=== PATIENT | female | born 1985 | race Caucasian/White ===

== ENCOUNTER 2021-05-02 12:27 | Emergency (ER) | payer BC, OTHER ==
[~2021-05-02] VITALS: Ht 167.6 cm; Wt 99.8 kg
[~2021-05-02 12:27] MED LIST: CIPRO500 MG PO; PERCOCET 5-3251 EACH PO; PYRIDIUM200 MG PO
[2021-05-02] MEDS ORDERED: HYDROMORPHONE HC2 MG PO (15:49)
[2021-05-02] MEDS ORDERED: LIDODERM1 EACH TOP (15:49)
== END 2021-05-02 16:04 | disposition home or self-care (01) ==
LOC: ED 12:27
DX: M54.41 Lumbago with sciatica, right side (principal); Z91.040 Latex allergy status
CPT/HCPCS: 96372; 99283; A9270; J1885

== ENCOUNTER 2021-12-23 14:17 | Emergency (ER) | payer BC, OTHER ==
[~2021-12-23] VITALS: Ht 167.6 cm; Wt 111.1 kg
[~2021-12-23 14:17] MED LIST changes: +HYDROMORPHONE HC2 MG PO; +LIDODERM1 EACH TOP
[2021-12-23] MEDS ORDERED: CEFADROXIL1 GM PO (15:45)
[2021-12-23] MEDS ORDERED: CELECOXIB200 MG PO (15:45)
== END 2021-12-23 15:57 | disposition home or self-care (01) ==
LOC: ED 14:17
DX: L05.01 Pilonidal cyst with abscess (principal); Z91.040 Latex allergy status; Z79.899 Other long term (current) drug therapy
CPT/HCPCS: 10060; 99282-25

== ENCOUNTER 2022-05-10 06:55 | Day surgery (SDC) | payer BC, OTHER ==
[~2022-05-10] VITALS: Ht 167.6 cm; Wt 111.4 kg
[~2022-05-10 06:55] MED LIST changes: +CEFADROXIL1 GM PO; +CELECOXIB200 MG PO
--- NOTE | 2022-05-10 07:30 | NUR ---
RN TO ROOM TO CHECK PT IN WITH DS RN. PT SITTING IN HIGH FOWLERS AND PULSE OXMIMETER PLACED ON PT, HR NOTED TO FLUXUATE. PT DENIES NAUSEA, BACK PAIN, CHEST PAIN. PT REPORTS HIGH AXITEY TODAY, "WORRIED ABOUT PAIN AFTER SUGERY." PT DENIES CARDIAC HX. RADIAL PULSE REGULER AND WNL. PT PRIMARY RN AWARE.
--- NOTE | 2022-05-10 09:00 | NUR ---
05/10/22 0900 Guillermina Petty 0859 - PT TAKEN THROUGH PACU DIRECTLY TO ER FOR INVESTIGATION OF HEART RYTHEM.
== END 2022-05-10 09:02 | disposition still patient (30) ==
LOC: DS 06:55
PROVIDERS: ATTEND Colon & Rectal Surgery
PROC: 0JB90ZZ Excision of Buttock Subcutaneous Tissue and Fascia, Open Approach (ICD-10-PCS; principal; 2022-05-10)
DX: L05.91 Pilonidal cyst without abscess (principal); E66.9 Obesity, unspecified; Z98.51 Tubal ligation status; Z87.891 Personal history of nicotine dependence; Z91.040 Latex allergy status; Z68.39 Body mass index [BMI] 39.0-39.9, adult
CPT/HCPCS: 00300; J0690; J1644; J2001; J2250; J2405; J2704; J3010; J7121

== ENCOUNTER 2022-05-10 09:05 | Inpatient (IN) | payer BC, OTHER ==
[~2022-05-10] VITALS: Ht 167.6 cm; Wt 109.8 kg
--- NOTE | 2022-05-11 07:31 | EKG ---
[facility] [address] [facility] [place] [address] Signed Atrial fibrillation Septal infarct , age undetermined Abnormal ECG No previous ECGs available POSTERIOR ECG Confirmed by EVERTON REED MD ([id number]) on 05/11/2022 7:31:32 AM Electronically Signed By: EVERTON REED MD 05/11/22 0731 PATIENT NAME: JOCE ROMERO Electrocardiogram DATE OF : 81 PHYSICIAN: EVERTON REED MD REPORT #: [id number] REPORT IS CONFIDENTIAL AND NOT TO BE RELEASED WITHOUT AUTHORIZATION
--- NOTE | 2022-05-11 07:32 | EKG ---
[facility] [address] [facility] [place] [address] Signed Atrial fibrillation Abnormal QRS-T angle, consider primary T wave abnormality Abnormal ECG No previous ECGs available Confirmed by EVERTON REED MD ([id number]) on 05/11/2022 7:32:32 AM Electronically Signed By: EVERTON REED MD 05/11/22 0732 PATIENT NAME: JOCE ROMERO Electrocardiogram DATE OF : 81 PHYSICIAN: EVERTON REED MD REPORT #: [id number] REPORT IS CONFIDENTIAL AND NOT TO BE RELEASED WITHOUT AUTHORIZATION
[2022-05-13] MEDS ORDERED: ALEVE220 MG PO (08:52)
[2022-05-13] MEDS ORDERED: ELIQUIS5 MG PO (10:07)
[2022-05-13] MEDS ORDERED: AMIODARONE HCL200 MG PO (10:08)
[2022-05-13] MEDS ORDERED: MAG-OXIDE400 MG PO (10:09)
== END 2022-05-13 17:07 | disposition home or self-care (01) | DRG 309 ==
LOC: ED 09:05 → CCU 09:06
PROVIDERS: ADMIT Family Medicine; ATTEND Internal Medicine
DX: I48.0 Paroxysmal atrial fibrillation (principal); L05.01 Pilonidal cyst with abscess; R11.0 Nausea; Z87.442 Personal history of urinary calculi; Z98.890 Other specified postprocedural states; Z98.51 Tubal ligation status; Z91.040 Latex allergy status; Z79.899 Other long term (current) drug therapy
CPT/HCPCS: 36415; 80048; 80053; 81001; 83735; 84443; 84484; 85025; 85379; 87502; 93005; 93010; 93306; 96374; 99285-25; A9270; J0282; J1650; J2405; J3475; J3480; J7030; J7060; U0003

== ENCOUNTER 2023-06-26 11:09 | Inpatient (IN) | payer BC, OTHER ==
[~2023-06-26] VITALS: Ht 167.6 cm; Wt 93.7 kg
[~2023-06-26 11:09] MED LIST changes: +ALEVE220 MG PO; +AMIODARONE HCL200 MG PO; +AMOXICILLIN500 M1 PO; +ELIQUIS5 MG PO; +MAG-OXIDE400 MG PO
[2023-06-26] MEDS ORDERED: CELEBREX50 MG PO (11:16)
[2023-06-26 11:35] LABS: BASOPHILS 0.6 % (0-2); EOSINOPHILS 1.1 % (0-6); HEMATOCRIT 45.6 % (35.0-50.0); HEMOGLOBIN 15.2 g/dL (12.0-18.0); LYMPHOCYTES 20.5 % (24-44); MCH 29.9 (27-36); MCHC 33.3 g/dl (30-36); MCV 89.8 fl (81-99); MONOCYTES 5.5 % (0-12); NEUTROPHILS 72.3 % (39-80); PLATELET COUNT 243 K/uL (140-440); RBC 5.08 M/ul (4.3-5.7); RDW 12.9 (10.5-15.0)
[2023-06-26 11:43] LABS: ALBUMIN 3.9 g/dL (3.4-5.0); ALBUMIN/GLOBULIN RATIO 0.93 (1.1-2.4); BILIRUBIN, TOTAL 0.3 ng/dL (0.2-1.0); BUN/CREATININE RATIO 10.34 (6.0-28.6); CALCIUM 9.1 mg/dL (8.5-10.1); CREATININE, SERUM 0.87 mg/dL (0.55-1.02); MAGNESIUM 1.9 mg/dL (1.8-2.4); PROTEIN, TOTAL 8.1 g/dL (6.4-8.2)
[2023-06-26 13:22] LABS: INFLUENZA B NAA NEGATIVE (NEGATIVE); RESPIRATORY SYNCYTIAL VIR NAA NEGATIVE (NEGATIVE)
[2023-06-26 17:56] VITALS: BP 112/85
--- NOTE | 2023-06-26 18:15 | NUR ---
PATIENT ARRIVED FROM ED VIA STRETCHER WITH REGINA HOLBROOK. PATIENT ABLE TO STAND AND TRANSFER TO BED ON HER OWN AND TOLERATED WELL. PATIENTS HR 140'S ON ARRIVAL. PATIENT HAS NO COMPLAINTS. PATIENT DENIES CHEST PAIN OR PALPITATIONS. BELONGINGS AT PATIENTS BEDSIDE.
[2023-06-26 20:00] VITALS: BP 123/101
--- NOTE | 2023-06-26 20:19 | NUR ---
RECEIVED REPORT FROM GAMA HOLBROOK. ALL QUESTIONS AND CONCERNS WERE ADDRESSED PATIENT JOCE DENIES ANY NEEDS OR DISCOMFORT AT THIS TIME. SHE IS LOOKING FORWARD TO RECEIVING VISITORS MOI
[2023-06-26 21:00] VITALS: BP 115/88
--- NOTE | 2023-06-26 21:00 | NUR ---
JOCE STATES COMFORTABLE AND ENDORSES NEED TO USE THE RESTROOM. ASSISTANCE WAS GIVEN TO MONITOR WIRES AND HR. SHE IS EATING WITH VISITORS AT BEDSIDE. SCHEDULED 2099 [address]
--- NOTE | 2023-06-26 21:06 | NUR ---
2105- ROUNDED WITH MD GRANADO REGARDING UNCONTROLLED RVR OF 120-180S WITH ACTIVITY. DISCUSSED ADDING A PRN MEDICATION FOR HR CONTROL BUT ULTIMATELY DECIDED AGAINST THIS DUE TO A 5 SECOND PAUSE EARLIER IN THE DAY.
--- NOTE | 2023-06-26 23:30 | NUR ---
2315: NOTIFIED MD GRANADO REGARDING HR UP TO 165 WHILE SLEEPING. THIS RN REQUESTED PRN ANTIARRYTHMICS AND DISCUSSED THIS WITH MD. HOWEVER, WE WILL CONTINUE CURRENT PLAN OF CARE OF AMIODARONE GTT
[2023-06-27] VITALS (23 sets, daily range): BP systolic 92–128; BP diastolic 61–100
--- NOTE | 2023-06-27 | NUR ---
0000- PATIENT JOCE IS RESTING WITH COMFORTABLY WITH EYES CLOSED. SHE DENIES ANY NEEDS AT THIS TIME AND STATES THAT THERE IS NO DISCOMFORT. THIS RN PROVIDED A WARM BLANKET AND ICE WATER. PERSONAL BELONGINGS, BEDSIDE TABLE, AND CALL LIGHT WITHIN REACH.
--- NOTE | 2023-06-27 02:08 | NUR ---
PATIENT JOCE IS RESTING WITH EYES CLOSED. SHE DENIES ANY NEEDS OR DISCOMFORTS AT THIS TIME. AMIO GTT STILL ACTIVE. HR CONTINUES TO BE NOTED 100-160. VSS. BEDSIDE TABLE, PERSONAL BELONGINGS, AND CALL LIGHT WITHIN REACH.
--- NOTE | 2023-06-27 02:38 | NUR ---
NOTIFIED MD GRANADO OF PERSISTENT RVR OF 120-170 WITH VTACH. 3-5 BEAT RUN OF VTACH NOTED EVERY MINUTE TO 2 MINUTES. MD GRANADO WILL REVIEW GET BACK TO ME WITH NEW ORDERS SHORTLY.
--- NOTE | 2023-06-27 03:32 | NUR ---
AMIODARONE BOLUS ADMINISTERED OVER 10 MINUTES. PATIENT NICK TOLERATED WELL WITH NO COMPLAINTS. PERSISTENT AFIB NOTED WITH RVR 160S. MULTIPLE PVCS AND VTACH NOTED. BP AFTER BOLUS 100/67 (78). WILL CONTINUE TO MONITOR CLOSELY AND FOLLOWUP WITH MD NEEDED. PATIENT DENIES ANY DISCOMFORTS. RESTROOM PRIVILEDGES GRANTED WITH RN AT BEDSIDE.
--- NOTE | 2023-06-27 04:57 | NUR ---
PATIENT NICK IS RESTING WITH EYES CLOSED. EASILY AROUSABLE. STATES COMFORT AND DENIES ANY NEEDS. BEDSIDE TABLE AND CALL LIGHT WITHIN REACH. AFIB RVR WITH VTACH NOTED
[2023-06-27 05:27] LABS: BASOPHILS 0.7 % (0-2); EOSINOPHILS 1.9 % (0-6); HEMOGLOBIN 13.1 g/dL (12.0-18.0); LYMPHOCYTES 26.2 % (24-44); MCH 30.3 (27-36); MCHC 33.5 g/dl (30-36); MCV 90.3 fl (81-99); MONOCYTES 5.5 % (0-12); NEUTROPHILS 65.7 % (39-80); PLATELET COUNT 192 K/uL (140-440); RBC 4.32 M/ul (4.3-5.7); RDW 13.4 (10.5-15.0)
[2023-06-27 05:37] LABS: ANION GAP 13.3 (7-21); BUN/CREATININE RATIO 17.24 (6.0-28.6); CALCIUM 8.5 mg/dL (8.5-10.1); CREATININE, SERUM 0.87 mg/dL (0.55-1.02); POTASSIUM 4.3 mmol/L (3.5-5.1)
--- NOTE | 2023-06-27 05:42 | NUR ---
0530- UPDATED MD GRANADO REGARDING MINIMAL CHANGE IN HR AND VTACH. THIS RN RECEIVED VERBAL ORDERS TO INCREASE AMIODARONE GTT DOSE TO 33.3ML/HR FOR THE REMAINDER OF 2ND BAG AND 3RD BAG OF AMIODARONE IF NO CHANGE IS NOTED.
--- NOTE | 2023-06-27 06:18 | NUR ---
0600- PATIENT NICK HAD A RESTFUL EVENING WITH MINIMAL COMPLAINTS, DISCOMFORTS, AND NO PAIN THROUGHOUT THE NIGHT. SHE WAS NOTED TO BE IN AFIB WITH RVR WITH VTACH. MD GRANADO NOTIFIED OF CARE THROUGHOUT THE NIGHT. NEURO- ALERT AND ORIENTED X4. NO PAIN. INDEPENDENT MOBILITY AND AMBULATION. CARDIAC- AFIB WITH RVR. AMIODARONE GTT INCREASED TO 33.3MLS. AMIO BOLUS ADMINISTERED. AFEBRILE, NO EDEMA NOTED. BP WDL RESP- WDL. BREATH SOUNDS CLEAR. ABLE TO COUGH AND DEEP BREATH GI/- WDL LDA BILATERAL AC PLAN- CONTINUE AMIO GTT. NURSING COMMUNICATION TO CONTINUE AMIO GTT RATE AT 33.3ML/HR
--- NOTE | 2023-06-27 06:26 | EKG ---
[facility] [address] [facility] [place], [place] [address] Signed afib w/ RVR brief episode of vtach. Abnormal QRS-T angle, consider primary T wave abnormality Abnormal ECG similar to 05/10/22 Confirmed by KARI GRANADO MD ([id number]) on 06/27/2023 6:25:55 AM Electronically Signed By: KARI GRANADO 06/27/23 0626 PATIENT NAME: JOCE ROMERO Electrocardiogram DATE OF : 81 PHYSICIAN: KARI GRANADO REPORT #: [id number] REPORT IS CONFIDENTIAL AND NOT TO BE RELEASED WITHOUT AUTHORIZATION
--- NOTE | 2023-06-27 07:34 | NUR ---
97.9 temp, new iv amiodorone started checked with mounika in pharmacy - awakened pt for meds, denies needs. call light in reach.
--- NOTE | 2023-06-27 08:04 | NUR ---
in room with dr lopez and pt. pt resting in bed, hr 142 with 93/75 bp. discussing plan of care and future oral meds.
--- NOTE | 2023-06-27 09:06 | NUR ---
tele alarming - dr lopez on unit discussed/reviewed with this rn - confirmed po lopressor was given to pt this am as ordered. hr current 135-140s dr carcamo.
--- NOTE | 2023-06-27 09:51 | NUR ---
In to complete assessment. Patient sleeping at this time. Allowed to rest at this time. Will return to speak with patient at later time.
--- NOTE | 2023-06-27 10:12 | NUR ---
IV PUMP ALARMING, "DISTAL OCCULSION." IV ASSESSED, WNL. NO S/S OF PHLEBITIS NOTED. INFUSION RESTARTED. PT UP TO RESTROOM WITH STAND BY ASSIST FOR LINE AND TUBE MANAGEMENT. PT VOIDS WITHOUT ISSUE. SAMANTHA CARE PER PT. STAND BY ASSIST BACK TO BED. HEART RATE UP TO 150'S WITH ACTIVIY, REMAINS IN AFIB RYTHEM. PTS PRIMARY RN UPDATED. PT SISTER ARRIVED TO VISIT. NO ADDITIONAL REQUESTS OR COMPLAINTS. CALL LIGHT WITHIN REACH. BED RAILS UP.
--- NOTE | 2023-06-27 10:36 | NUR ---
Patients sister is in room with her. Patient has gotten up and voided 1x. Breakfast still on table. Patient reports no pain and remains in bed with call light in reach.
--- NOTE | 2023-06-27 10:56 | NUR ---
DR BERNAL IN UNIT - RN REVIEWED THE TELE AND HR WITH REVIEWED EMAR AND MEDS GIVEN TODAY NO CHANGES.
--- NOTE | 2023-06-27 10:59 | NUR ---
PT SADDENED BY NEED TO MISS FAMILY EVENT THIS WEEKEND. REINFORCED IMPORTANCE OF SELF CARE AND HEALTH. PT CONSENTED TO PRAYER. PRAYED FOR PATIENCE AND TIMELINESS OF HEALING.
--- NOTE | 2023-06-27 12:21 | NUR ---
dr lopez in unit with this intern [facility] med list with this rn no cardiac meds, aware rn request records from [place], review tele at this time, hr 137, bp 117/100. no pt distress.
--- NOTE | 2023-06-27 12:47 | NUR ---
rn call to medical records at [facility] - verbal expidite of records from cardiology being sent now. pt resting in room, family at side, denies sob, complaints, call light in reach. hr 133.
--- NOTE | 2023-06-27 12:50 | NUR ---
call to dr lopez pt converted to sr rate in the 50's then rn hung up phone and rate resumed irregular and sinus tachy.
--- NOTE | 2023-06-27 13:06 | NUR ---
THIS RN ANSWERED CALL LIGHT. PT STATES SHE NEEDS TO "GO NUMBER 2", PT STANDBY ASSIST TO BATHROOM. PT STATES SHE HAD A BM, SHE FLUSHED THE TOILET SO THIS RN DID NOT SEE BM CHARACTERISTICS. PT TRANSFERS BACK TO BED WITH STANDBY ASSIST. PT'S RN NOTIFIED. PT STATES NO FURTHER NEEDS AT THIS TIME, CALL LIGHT WITHIN REACH, BED RAILS UP, FRIENDS AT BEDSIDE.
--- NOTE | 2023-06-27 13:30 | NUR ---
dr lopez here - reviewed tele from 1250 conversion and re entry to [facility] afib. aware records from [place] are transmitting now. pt denies needs.
--- NOTE | 2023-06-27 13:52 | NUR ---
Patient sitting up with friends/family in room. States she lives in a house with her aunt and 2 sons. Has stairs. No issues navigating stairs. Patient still works full time staff interpreter and drives. Has no issues getting to appointment. no issues financially and no issues obtaining food or medications. Denies any needs at this time.
[2023-06-27] MEDS ORDERED: CELECOXIB200 MG PO (14:25)
--- NOTE | 2023-06-27 14:54 | NUR ---
MED REC COMPLETE
--- NOTE | 2023-06-27 15:28 | NUR ---
on unit. update from nurse and he reviewed tele at this time hr 133. 121/92 bp - no iv fluids needed. pt eating/drinking sm amt. enc. oral fluids. no n/v. call light in reach.
--- NOTE | 2023-06-27 15:53 | NUR ---
in room to refill water and vitals - pt reports warm feeling and sweating occasionally but otherwise no symptoms.
--- NOTE | 2023-06-27 17:58 | NUR ---
dr lopez here on unit reviewing tele hr 137, no changes.
--- NOTE | 2023-06-27 18:59 | NUR ---
pt resting in bed, hr 138 denies needs. call light in reach.
--- NOTE | 2023-06-27 19:45 | NUR ---
INTO PT ROOM FOR INTRODUCTIONS, SHE IS ALERT AND ORIENTED, SHE REPORTS NO NEEDS AT THIS TIME INITIALLY THEN SAID, "WELL, WHILE YOU ARE IN HERE MAYBE I COULD USE THE BATHROOM" THIS RN ASSISTED WITH LINE MANAGEMENT. PT HAS STEADY GAIT AMBULATING TO BATHROOM WITH MONITOR ON. SHE VOIDED 350ML CLEAR YELLOW URINE. THEN PROVIDED FRESH ICE WATER. SHE THEN REPORTS IV AT RIGHT AC IS TENDER, ON ASSESSMENT NOTED SOME SWELLING AND TENDER, REMAINS PATENT, CHANGE IV INFUSION TO LEFT AC, ON ASSESSMENT LEFT AC IV SITE HAS BLOOD RETURN AND FLUSHES WITHOUT PAIN. DISCUSSED WITH PT THAT THIS RN WOULD START NEW IV SITE AND REMOVE RIGHT AC SITE.
--- NOTE | 2023-06-27 21:15 | NUR ---
ROUNDING WITH PATIENT, HS MEDICATIONS ADMINISTERED, AT PATIENT ROOM DOOR, THIS RN OUT TO TALK WITH , HE SAID "I AM AWARE OF SHORT RUNS OF VTACH, NO NEED TO CALL UNLESS SUSTAINED, ALSO AWARE OF TACHYCARDIA CONTINUED" HE ASKED "HAS THE EVENING LOPRESSOR BEEN ADMINISTERED?" THIS RN SAID "YES, JUST GAVE" DISCUSSED PT CARE PLAN, NO NEW ORDERS AT THIS TIME, THIS RN BACK TO PT ROOM TO START NEW IV AT LEFT FOREARM, ICE PACK FOR RIGHT AC IV SITE THAT HAS BEEN REMOVED FOR INFLAMMATION AT SITE AND PT REPORT OF BURNING PAIN. SHE REPORTS BETTER SINCE REMOVED. NO NEW CONCERNS AT THIS TIME.
[2023-06-28] VITALS (24 sets, daily range): BP systolic 18–126; BP diastolic 65–102
--- NOTE | 2023-06-28 03:51 | NUR ---
ROUNDING, CHANGED OUT GTT INFUSION WITH NEW ADMINISTRATION SET. IV SITE WNL LEFT FOREARM
[2023-06-28 05:13] LABS: BASOPHILS 3.8 % (0-2); EOSINOPHILS 1.3 % (0-6); HEMATOCRIT 41.3 % (35.0-50.0); HEMOGLOBIN 13.6 g/dL (12.0-18.0); LYMPHOCYTES 10.5 % (24-44); MCV 90.7 fl (81-99); MONOCYTES 4.6 % (0-12); NEUTROPHILS 79.8 % (39-80); PLATELET COUNT 171 K/uL (140-440); RBC 4.55 M/ul (4.3-5.7); RDW 13.3 (10.5-15.0)
[2023-06-28 05:49] LABS: ANION GAP 12.3 (7-21); BUN/CREATININE RATIO 13.82 (6.0-28.6); CALCIUM 8.7 mg/dL (8.5-10.1); CREATININE, SERUM 0.94 mg/dL (0.55-1.02); MAGNESIUM 1.8 mg/dL (1.8-2.4); POTASSIUM 4.3 mmol/L (3.5-5.1)
--- NOTE | 2023-06-28 08:18 | NUR ---
IN PATIENT'S ROOM FOR ASSESSMENT, VITALS, AND BREAKFAST. PT ABLE TO AMBULATE BACK FROM BATHROOM INDEPENDENTLY. PT REPORTS FEELING OKAY, DENIES CHEST PAIN OR SHORTNESS OF BREATH. AMIODARONE GTT REMAINS INFUSING AT 16 ML/HR. HR REMAINS ELEVATED, 100-120s, IRRATIC AND SOME SHORT RUNS OF VTACH HAVE BEEN NOTED. PT STATES SOMETIMES SHE WILL FEEL HER CHEST BECOME "TIGHT," BUT DENIES ANY PAIN. PT STATES HER BIGGEST SYMPTOM IS FEELING FATIGUED. PT RECALLS SHE WAS IN HERE FOR FOUR DAYS BEFORE CONVERTING TO NS[facility] LAST April,. PT DID FOLLOW UP WITH CARDIOLOGY EP DR. WALTER. PO MEDS TO BE GIVEN THIS AM. PLAN OF CARE DISCUSSED AND ALL QUESTIONS ANSWERED BEST POSSIBLE.
--- NOTE | 2023-06-28 12:31 | NUR ---
ASSESSMENT COMPLETE. PT STATES SHE FEELS THE WORSE RIGHT NOW THAN SHE HAS ENTIRE TIME BEING HERE, ESPECIALLY AFTER AMBULATING INTO BATHROOM TO VOID. PT STATES SHE FEELS TIRED AND LETHARGIC. NOTED ON MONITOR THAT PT'S SP02 WAVEFORM IS ALSO IRREGULAR, EXPECTED, BUT THERE IS VARYING DEGREE OF STRENGTH TO HER PULSATIONS BEING PICKED UP ON SP02 WAVE. WHEN PALPATING PT'S RADIAL PULSE, PULSE IS WEAK AND HARD TO FEEL AT TIMES. DOPPLER USED TO COUNT AUDIBLE PULSATIONS FOR A MINUTE, AND THIS RANGED FROM 53-65, BUT HER HEART RATE ON MONITOR IS 120-130s. PT HAS MULTIFOCAL QRS COMPLEXES AT TIMES, AND MONITOR ALARM NONSUSTAINED VTACH QUITE FREQUENTLY. THESE RUNS ARE NARROW COMPLEX STILL, BUT THE QRS FORMATION IS DIFFERENT. SHE ALSO HAS HAD SHORT BURSTS OF VTACH, NOTEABLE THE LAST ONE WAS AROUND 0721 THIS AM. PT DOES NOT FEEL THESE IRREGULARITIES, BUT JUST FEELS TIRED STATED ABOVE. DR. GRANADO NOTIFIED IN PERSON OF PATIENT'S FEELINGS. INQUIRED WITH DR. GRANADO REGARDING POTENTIAL CARDIOVERSION PARAMETERS FOR THIS PATIENT, BUT WE WILL CONTINUE WATCHING HER ON AMIODARONE GTT AND PO METOPROLOL FOR NOW. CONTINUE TO MONITOR.
--- NOTE | 2023-06-28 15:40 | NUR ---
PATIENT HAD FAMILY VISITING IN ROOM FOR ABOUT AN HOUR. OVERALL, HR TREND REMAINS GREATER THAN 105, BUT LESS THAN 140s. AVERAGE HR HAS STILL BEEN AROUND 120. AMIODARONE GTT REMAINS INFUSING AT 16 ML/HR. PT DENIES FURTHER NEEDS. CONTINUE TO MONITOR.
--- NOTE | 2023-06-28 16:47 | NUR ---
PATIENT UP TO BATHROOM TO VOID. REPORTS FEELING ABOUT THE SAME EARLIER. MAG INFUSION STARTED AND AMIODARONE REMAINS INFUSING AT 16 ML/HR. NO FURTHER NEEDS. CONTINUE TO MONITOR.
--- NOTE | 2023-06-28 19:22 | NUR ---
ROUNDING AFTER REPORT. PT RESTING ON HER RIGHT SIDE IN BED WATCHING A MOVIE ON HER CELL PHONE. SHE IS ALERT AND ORIENTED, SHE REPORTS SHE HAS FELT MORE TIRED TODAY, SHE SAID I DO THINK I FEEL BETTER SINCE THE MAGNESIUM REPLACEMENT. PATIENT REPORTS NO OTHER CONCERNS OR REQUESTS AT THIS TIME.
--- NOTE | 2023-06-28 21:03 | NUR ---
PATIENT UP TO BATHROOM STANDBY ASSIST, SHE TOLERATED ACTIVITY WELL, HS MEDICATIONS ADMINISTERED, TYLENOL PRN FOR CHRONIC BACK AND HIP PAIN 12/23. ASSESSMENT COMPLETE. PT REPORTS NO FURTHER NEEDS AT THIS TIME.
[2023-06-29] VITALS (20 sets, daily range): BP systolic 88–138; BP diastolic 60–98
--- NOTE | 2023-06-29 00:33 | NUR ---
NOTIFIED OF 0019 3 SECOND PAUSE, THEN BRADYCARDIA IN NORMAL SINUS RHYTHM FOR 44 SECONDS THEN, PATIENT HEART RATE INITIALLY LOW 30/MIN BEATS NOT SUSTAINED, REBOUNDED TO 40'S THEN BACK TO 70'S. NO NEW ORDERS.
--- NOTE | 2023-06-29 00:40 | NUR ---
0019..INTO PATIENT ROOM TO ASSESS HER, NOTED ON TELEMETRY 3 SECOND PAUSE, FOLLOWED BY BRADYCARDIA, LASTING 44 SEC APPROXIMATE, PATIENT WAS EASILY AWAKEN AND REPORTED NO SYMPTOMS, PT THEN RETURNED TO AFIB WITH RVR. NOTIFIED.
--- NOTE | 2023-06-29 01:29 | NUR ---
PT RESTING QUIETLY IN BED, EYES CLOSED, NO DISTRESS NOTED, RESP RATE 15/MIN. PT ON MONITOR.
--- NOTE | 2023-06-29 03:17 | NUR ---
PT UP TO BATHROOM VOIDED 700ML OF CLOUDY URINE, PT TOLERATED ACTIVITY WELL. NO OTHER REQUESTS OR CONCERNS AT THIS TIME.
[2023-06-29 05:13] LABS: BASOPHILS 0.6 % (0-2); EOSINOPHILS 1.5 % (0-6); HEMATOCRIT 40.7 % (35.0-50.0); HEMOGLOBIN 13.8 g/dL (12.0-18.0); LYMPHOCYTES 22.4 % (24-44); MCH 30.3 (27-36); MCHC 33.9 g/dl (30-36); MCV 89.4 fl (81-99); MONOCYTES 6.2 % (0-12); NEUTROPHILS 69.3 % (39-80); PLATELET COUNT 186 K/uL (140-440); RBC 4.55 M/ul (4.3-5.7); RDW 13.4 (10.5-15.0)
[2023-06-29 05:31] LABS: ANION GAP 14.1 (7-21); BUN/CREATININE RATIO 13.48 (6.0-28.6); CALCIUM 8.5 mg/dL (8.5-10.1); CREATININE, SERUM 0.89 mg/dL (0.55-1.02); MAGNESIUM 2.1 mg/dL (1.8-2.4); POTASSIUM 4.1 mmol/L (3.5-5.1)
--- NOTE | 2023-06-29 06:30 | NUR ---
TELEMETRY SHOWED CONVERSION AFTER 2.63 SEC PAUSE AND THEN BRADYCARDIA TO 34/MIN AND THEN REBOUNDED, AT NURSES STATION TO WITNESS EVENT, THIS RN INTO PT ROOM, SHE ALERT TO RN AT BEDSIDE, SHE REPORTS NO SYMPTOMS, NO CHEST PAIN.
--- NOTE | 2023-06-29 08:11 | NUR ---
IN PATIENT'S ROOM FOR ASSESSMENT, BREAKFAST AND VITALS. PT STATES SHE FEELS "PRETTY GOOD" RIGHT NOW, DENIES ANY OF THE CHEST TIGHTNESS THAT SHE WAS HAVING YESTERDAY. PT REMAINS IN AFIB, HR RANGING 100-120s. PT DID CONVERT TO NORMAL SINUS RHYTHM 3 TIMES IN THE NIGHT, BUT DID NOT SUSTAIN FOR LONGER THAN ABOUT 30 SECONDS. LUNGS REMAINS CLEAR. PT DENIES PAIN OR SHORTNESS OF BREATH. AMIODARONE INFUSING AT 16 ML/HR. PT WILL REMAIN ON AMIODARONE GTT UNTIL FURTHER NOTICE PER DR. GRANADO.
--- NOTE | 2023-06-29 09:01 | NUR ---
DR. GRANADO IN TO SEE PATIENT. PLAN OF CARE BEING DISCUSSED. PT ABLE TO TAKE AM MEDS WITHOUT ANY DIFFICULTY. NO CHANGE TO PLAN AT THIS TIME.
--- NOTE | 2023-06-29 12:00 | NUR ---
PT UP TO SHOWER AND TOLERATED WELL. PT CONVERTED TO SINUS RHYTHM 2 TIMES WHILE IN SHOWER, BUT DID NOT FEEL ANY DIFFERENT, NOR NOTICE THE CHANGES IN HER HEART RATE. PT STATES SHE FEELS BETTER AFTER SHOWERING. PT NOW UP IN CHAIR. LINENS CHANGED. NOTED THAT PT'S URINE IS CLOUDY AND DOES HAVE AN ODOR TO IT. DISCUSSED WITH PATIENT IF SHE IS HAVING ANY DYSURIA, AND SHE STATES THAT SHE ACTUALLY IS, AND EVEN ASKED HER PCP ABOUT THIS WHEN SHE SAW THEM LAST FRIDAY, BUT THEY REPORT HER UA WAS NORMAL AT THAT TIME. DISCUSSED WITH DR. GRANADO AND UA ORDERED.
--- NOTE | 2023-06-29 13:11 | NUR ---
PT NOTED TO HAVE A LONG PAUSE AND THEN SEVERAL TYLER BEATS. PT STATES THAT SHE SAW "SPARKLIES FOR A MINUTE AND THEN IT WAS GONE". DENIES ANY OTHER S\\S. DR GLASGOW
[2023-06-29 14:52] LABS: BILIRUBIN, URINE NEGATIVE (negative); BLOOD/HGB, URINE TRACE-I (Negative); KETONE, URINE NEGATIVE (Negative); LEUK ESTERASE, URINE SMALL (negative); NITRITE, URINE NEGATIVE (negative)
[2023-06-29 15:01] LABS: BACTERIA, URINE RARE /hpf (negative); CRYSTALS, URINE NONE SEEN (0-1+); EPITHELIAL CELLS, URINE SQUAMOUS 1+ /lpf (0-1+); RED BLOOD CELLS, URINE 0-1 /hpf (0-5)
[2023-06-29 15:02] LABS: CASTS, URINE HYALINE 1+ \\lpf; COLLECTION TYPE, URINE CLEAN CATCH; REFLEX CULTURE, URINE Yes (No)
--- NOTE | 2023-06-29 15:19 | NUR ---
PATIENT CONVERTED TO SINUS AGAIN AT 1503, BUT FOR SLIGHTLY LESS THAN A MINUTE. HR WAS IN THE 50s DURING THIS TIME, AND THE COMPENSATORY PAUSE WAS AROUND 2.7 SECONDS. PT ASSESSED AND STATES, "I FELT THAT THIS TIME. I WAS LAYING DOWN AND FELT HEAVY IN MY HEAD, ALMOST LIGHTHEADED AND HEAVY BEHIND MY EYES." PT DENIED FEELING SHORT OF BREATH OR HAVING ANY CHEST PAIN, BUT AGAIN STATED, "I COULD FEEL THAT MOSTLY IN MY HEAD." PT BACK INTO RAPID AFIB, RATES 120-130s MOSTLY. AGAIN, PT IS RESTING FLAT IN BED AT THIS TIME. AMIODARONE CONTINUES AT 16 ML/HR. MD TO BE UPDATED AND WILL CONTINUE TO MONITOR.
--- NOTE | 2023-06-29 19:45 | NUR ---
PATIENT ALERT AND ORIENTED, SITTING UP IN BED, WATCHING TV. AMIODARONE INFUSION COMPLETE, NEW INFUSION BAG HANG AND STARTED. DISCUSSED WITH PT PLAN OF CARE FOR TONIGHT AND REVIEWED DAYSHIFT EVENTS AND CARES. PATIENT REPORTS NO NEEDS OR CONCERNS AT THIS TIME. ASSESSMENT COMPLETE.
--- NOTE | 2023-06-29 21:37 | NUR ---
PT ALERT AND ORIENTED, SHE REPORTS NO CHEST PAIN OR NAUSEA, SHE REPORTS "I JUST FELL BORED I HAVE NOTHING TO DO" PT PROVIDED ACTIVITY BOOK FROM UNIT SUPPLY AND COLORED PENCILS, WELL A GUIDE POST FOR READING MATERIAL. SHE HAS NO OTHER QUESTIONS OR CONCERNS, DISCUSSED PLAN OF CARE, MEDICATIONS, AND EXPECTATIONS.
--- NOTE | 2023-06-29 21:46 | EKG ---
[facility] [address] [facility] [place] [address] Signed Atrial fibrillation with rapid ventricular response Nonspecific T wave abnormality Abnormal ECG When compared with ECG of 26-JUN-2023 11:13, Previous ECG has undetermined rhythm, needs review Nonspecific T wave abnormality now evident in Lateral leads Confirmed by Callum Maxwell MD () on 06/29/2023 9:45:57 PM Electronically Signed By: CALLUM MAXWELL MD 06/29/23 2146 PATIENT NAME: JOCE ROMERO Electrocardiogram DATE OF : 81 PHYSICIAN: CALLUM MAXWELL MD REPORT #: [id number] REPORT IS CONFIDENTIAL AND NOT TO BE RELEASED WITHOUT AUTHORIZATION
[2023-06-30] VITALS (18 sets, daily range): BP systolic 89–145; BP diastolic 66–92
--- NOTE | 2023-06-30 00:14 | NUR ---
PT RESTING QUIELTY IN BED, EYES CLOSED. RESPIRATION 15/MIN, NO DISTRESS NOTED. PT ALERT TO THIS RN AT BEDSIDE. ASSESSMENT COMPLETE, NO NEW CONCERNS AT THIS TIME.
--- NOTE | 2023-06-30 03:08 | NUR ---
0258..SEAT COVER MAKER SHOWED 2.91 PAUSE, FOLLOWED BY SINUS TYLER 40-50/MIN FOR ONE MINUTE, THEN RETURNED TO AFIB RHYTHM. THIS RN INTO ROOM DURING EVENT, PT ALERT, ORIENTED, SHE REPORTS NO SYMPTOMS OF CHEST PAIN OR NAUSEA.
--- NOTE | 2023-06-30 05:15 | NUR ---
LAB INTO PATIENT ROOM FOR AM DRAW, THIS RN INTO PT ROOM AFTER LAB, PATIENT UP TO BATHROOM VOIDED 800ML ORANGE URINE (SEE EMAR), SHE TOLERATED ACTIVITY WELL, SHE REPORTS NO CHEST PAIN, NAUSEA, OR DIZZINESS WITH ACTIVITY. SHE SAID "I FEEL REALLY GOOD RIGHT NOW." CHANGED LINENS ON BED, AM ASSESSMENT COMPLETE, NO NEW CHANGES. PT DENIES ANY NEEDS AT THIS TIME. CALL LIGHT IN REACH
[2023-06-30 05:24] LABS: BASOPHILS 0.9 % (0-2); EOSINOPHILS 1.7 % (0-6); HEMATOCRIT 42.1 % (35.0-50.0); HEMOGLOBIN 14.4 g/dL (12.0-18.0); LYMPHOCYTES 29.8 % (24-44); MCH 30.5 (27-36); MCHC 34.3 g/dl (30-36); MCV 88.8 fl (81-99); MONOCYTES 5.9 % (0-12); NEUTROPHILS 61.7 % (39-80); PLATELET COUNT 178 K/uL (140-440); RBC 4.74 M/ul (4.3-5.7); RDW 13.1 (10.5-15.0)
[2023-06-30 06:05] LABS: ANION GAP 11.2 (7-21); BUN/CREATININE RATIO 11.95 (6.0-28.6); CALCIUM 8.5 mg/dL (8.5-10.1); CREATININE, SERUM 0.92 mg/dL (0.55-1.02); MAGNESIUM 1.9 mg/dL (1.8-2.4); POTASSIUM 4.2 mmol/L (3.5-5.1)
--- NOTE | 2023-06-30 06:22 | NUR ---
PT RESTING QUIELTY IN BED ON HER LEFT SIDE, EYES CLOSED RESPIRATION REGULAR 14/MIN, NO DISTRESS NOTED, IV SITE AT RIGHT UPPER ARM IS WNL, INTACT, NO REDNESS.
--- NOTE | 2023-06-30 07:20 | NUR ---
report from Kandy rn, pt resting on left side, call light in reach.
--- NOTE | 2023-06-30 07:41 | NUR ---
pt heart rate converted to a sr in the 40's pt was asleep, rn checked pt and pt denies any symptoms or feeling of knowing a change. pt continues to rest heart rate 110 now.
--- NOTE | 2023-06-30 11:52 | NUR ---
dr albert on unit, pt amb to br to void and back to bed. hr 119. mom in room, drip continues.
--- NOTE | 2023-06-30 12:18 | NUR ---
dr grigsby in to speak with pt and her mother. about treatment options. pt has just amb to br to void 400 ml and had bm. up at side eating meal - denies symptoms, needs, wanting to go home, but understands the need. - rn provided the pt with printed info on new meds, and current illness - afib, eliquis, and cardioversion.
--- NOTE | 2023-06-30 14:49 | NUR ---
FAMILY AND FRIEND IN ROOM. PT IN OVERALL GOOD SPIRITS. EXERCISED MINISTRY OF PRESENCE SON TALKED OF FOOTBALL GAME. HOPEFUL OF DEFINITIVE DIAGNOSIS AND PATH TOWARDS EPISCOPAL. PRAYED SILENT PRAYER FOR EPISCOPAL OF HEALTH AND DISCERNMENT OF CAUSE.
--- NOTE | 2023-06-30 15:43 | NUR ---
pt amb to br to void, and bm, pt back to bed, hr 132 denies needs or symptoms. call light in reach.
--- NOTE | 2023-06-30 18:50 | NUR ---
report to [place] at [facility],
== END 2023-06-30 16:46 | disposition short-term general hospital (02) | DRG 310 ==
LOC: ED 11:09 → CCU 17:00
PROVIDERS: Emergency Medicine; ADMIT Family Medicine; ATTEND Family Medicine
DX: I48.91 Unspecified atrial fibrillation (principal); M48.00 Spinal stenosis, site unspecified; G89.29 Other chronic pain; M54.9 Dorsalgia, unspecified; R00.1 Bradycardia, unspecified; I95.9 Hypotension, unspecified; Z91.040 Latex allergy status
CPT/HCPCS: 36415; 71045; 80048; 80053; 81001; 83735; 85025; 87088; 87502; 93005; 93010; A9270; C9803; J0282; J3475; J3490; J7030; U0002